=== PATIENT | male | born 1945 | race Caucasian/White ===

== ENCOUNTER 2017-08-29 06:52 | Day surgery (SDC) | payer OTHER ==
[2017-08-28 12:26] VITALS: BMI 27.8
[2017-08-29] MEDS ORDERED: PROPOFOL 20 ML ONE ×3 (07:56)
[2017-08-29] MEDS ORDERED: LIDOCAINE HCL/PF 2% SDV 5ML VIAL ONE (07:56)
[2017-08-29 08:41] VITALS: TEMP 97.4
[2017-08-29 13:11] VITALS: BP 123/52; PULSE 52
--- NOTE | 2017-09-01 13:17 | PATH ---
Surgical Pathology Report Patient Name: SHERRIE GAXIOLA [facility]. Rec. #: [id number] /Age/Gender: 1945 (Age: 72) / M Account: [id number] Location: [facility]-ENDOSCOPY Taken: 08/29/2017 Received: 08/29/2017 Reported: 09/01/2017 Physicians: Arya Olivia M.D. Specimen(s) Received A: BX ILEOCECAL VALVE POLYP B: PROXIMAL TRANSVERSE COLON POLYP BX C: DESCENDING COLON POYLP BX Clinical History Preoperative diagnosis: Polyp surveillance Postoperative diagnosis: Cecal, transverse and descending colon polyps, diverticulosis Final Diagnosis A. ILEOCECAL VALVE, POLYP, BIOPSY: HYPERPLASTIC POLYP. B. PROXIMAL TRANSVERSE COLON, POLYP, BIOPSY: POLYPOID COLONIC MUCOSA WITH SUPERFICIAL HYPERPLASTIC FEATURES. C. DESCENDING COLON, POLYP, BIOPSY: POLYPOID COLONIC MUCOSA WITH SUPERFICIAL HYPERPLASTIC FEATURES. Electronically Signed Janay Delaney M.D. Gross Description A. Received in formalin, labeled "biopsy ileocecal valve polyp" is a cedillo, irregular portion of soft tissue measuring 0.3 cm. in greatest dimension. The specimen is submitted in toto in one cassette. B. Received in formalin, labeled "proximal transverse colon polyp biopsy" are 2 cedillo, irregular portions of soft tissue measuring 0.2 and 0.3 cm. in greatest dimension. The specimens are submitted in toto in one cassette. C. Received in formalin, labeled "descending colon polyp biopsy" is a cedillo, irregular portion of soft tissue measuring 0.2 cm. in greatest dimension. The specimen is submitted in toto in one cassette. 08/29/2017 saudi08/29/2017
== END 2017-08-29 09:35 | disposition home or self-care (01) ==
LOC: JASU-ENDO 06:52
PROVIDERS: ATTEND Internal Medicine Gastroenterology
PROC: 0DBL8ZX Excision of Transverse Colon, Via Natural or Artificial Opening Endoscopic, Diagnostic (ICD-10-PCS; 2017-08-29)
PROC: 0DBC8ZX Excision of Ileocecal Valve, Via Natural or Artificial Opening Endoscopic, Diagnostic (ICD-10-PCS; 2017-08-29)
PROC: 0DBM8ZX Excision of Descending Colon, Via Natural or Artificial Opening Endoscopic, Diagnostic (ICD-10-PCS; principal; 2017-08-29 08:00)
DX: Z86.010 Personal history of colon polyps (principal); D12.4 Benign neoplasm of descending colon; D12.3 Benign neoplasm of transverse colon; K57.30 Diverticulosis of large intestine without perforation or abscess without bleeding; K64.8 Other hemorrhoids